=== PATIENT | male | born 1990 | race Caucasian/White ===

== ENCOUNTER 2018-07-11 16:57 | Emergency (ER) | payer OTHER ==
[~2018-07-11] VITALS: Ht 152.4 cm; Wt 84.1 kg
[2018-07-11 17:05] VITALS: BP 129/75; PULSE 70; TEMP 98.4
[2018-07-11] MEDS ORDERED: DOXYCYCLINE HY100 MG PO (17:35)
== END 2018-07-11 17:54 | disposition home or self-care (01) ==
LOC: COL.ER 16:57
DX: L02.411 Cutaneous abscess of right axilla (principal)